=== PATIENT | female | born 1965 | race Asian ===

== ENCOUNTER → 2017-04-10 | Outpatient (CLI) | payer OTHER ==
[~2017-04-10] MED LIST: OMNIPAQUE 350 MG/ML, 100ML BOTTLE ONE
== END ==
LOC: CFH 11:01
PROVIDERS: ATTEND Obstetrics & Gynecology
DX: R10.32 Left lower quadrant pain (principal)
CPT/HCPCS: 74177; Q9967

== ENCOUNTER → 2017-04-19 | Outpatient (CLI) | payer OTHER ==
[~2017-04-19] MED LIST changes: +IRON PO; -OMNIPAQUE 350 MG/ML, 100ML BOTTLE ONE
[2017-04-19 08:53] LABS: BASOPHILS # (AUTO) 0.06 x10^3/uL (0-0.1); BASOPHILS % (AUTO) 2 % (0-1); EOSINOPHILS # (AUTO) 0.08 x10^3/uL (0-0.4); EOSINOPHILS % (AUTO) 2 % (1-7); LYMPHOCYTES # (AUTO) 1.28 x10^3/uL (1-3.4); LYMPHOCYTES % (AUTO) 34 % (22-44); MD NO; MEAN CORPUSCULAR HEMOGLOBIN 27.5 pg (27.0-34.8); MEAN CORPUSCULAR HGB CONC 33.2 g/dL (32.4-35.8); MEAN CORPUSCULAR VOLUME 82.7 fL (80-100); MEAN PLATELET VOLUME 7.9 fL (7.4-10.4); MONOCYTES # (AUTO) 0.26 x10^3/uL (0.2-0.8); MONOCYTES % (AUTO) 7 % (2-9); NEUTROPHILS # (AUTO) 2.08 x10^3/uL (1.8-6.8); NEUTROPHILS % (AUTO) 55 % (42-75); PLATELET COUNT 282 x10^3/uL (130-400); RED BLOOD COUNT 4.55 x10^6/uL (3.82-5.3); RED CELL DISTRIBUTION WIDTH 20.4 % (9.6-15.2)
[2017-04-19 08:57] LABS: MICROSCOPIC INDICATED
[2017-04-19 09:32] LABS: CULTURE INDICATED? YES
== END ==
LOC: STAR 07:43
PROVIDERS: ATTEND Obstetrics & Gynecology
DX: Z01.818 Encounter for other preprocedural examination (principal); N92.0 Excessive and frequent menstruation with regular cycle; D64.9 Anemia, unspecified
CPT/HCPCS: 36415; 81001; 84703; 85025; 87086; 93005

== ENCOUNTER 2017-04-26 07:00 | Day surgery (SDC) | payer OTHER ==
[~2017-04-26] VITALS: Ht 167.6 cm; Wt 64.0 kg
[2017-04-26] MEDS ORDERED: ACETAMINOPHEN 500 MG TABLET PO STA (07:18)
[2017-04-26] MEDS ORDERED: LACTATED RINGERS 1,000 ML IV SCH (07:18)
[2017-04-26] MEDS ORDERED: GABAPENTIN 300 MG CAPSULE PO STA (07:18)
[2017-04-26 07:34] VITALS: BP 96/64
[2017-04-26] MEDS ORDERED: MIDAZOLAM 1 MG/ML, 2ML ONE (08:24)
[2017-04-26] MEDS ORDERED: LIDOCAINE GEL 2%, 5ML ONE (08:24)
[2017-04-26] MEDS ORDERED: ROCURONIUM 10 MG/ML,10ML ONE (08:24)
[2017-04-26] MEDS ORDERED: SUCCINYLCHOLINE 20 MG/ML, 10ML ONE (08:24)
[2017-04-26] MEDS ORDERED: FENTANYL PF 250 MCG/5ML ONE (08:24)
[2017-04-26] MEDS ORDERED: PROPOFOL 10 MG/ML, 20ML ONE (08:24)
[2017-04-26 08:28] LABS: HCG UR SG 1.018 (1.003-1.030)
[2017-04-26] MEDS ORDERED: EPINEPHRINE 1 MG/ML, 1ML ONE (08:37)
[2017-04-26] MEDS ORDERED: BUPIVACAINE/PF 0.25% ONE (08:37)
[2017-04-26] MEDS ORDERED: FLUORESCEIN SODIUM 500 MG/5 ML ONE (08:37)
[2017-04-26] MEDS ORDERED: DEXAMETHASONE 4 MG/ML, 1ML ONE (08:59)
[2017-04-26] MEDS ORDERED: CEFAZOLIN 1,000 MG ONE (08:59)
[2017-04-26] MEDS ORDERED: KETOROLAC 30 MG/1 ML ONE (08:59)
[2017-04-26] MEDS ORDERED: ONDANSETRON 2MG/ML, 2ML ONE (08:59)
[2017-04-26] MEDS ORDERED: EPHEDRINE 50 MG/ML, 1ML ONE (09:22)
[2017-04-26] MEDS ORDERED: BUPIVACAINE/PF 0.25% INFIL ONE (09:28)
[2017-04-26] MEDS ORDERED: EPINEPHRINE 1 MG/ML, 1ML INFIL ONE (09:29)
[2017-04-26] MEDS ORDERED: hydrALAzine 20 MG/ML, 1ML IV PRN (09:30)
[2017-04-26] MEDS ORDERED: HYDROmorphone 1 MG/ML, 1ML IV PRN (09:30)
[2017-04-26] MEDS ORDERED: PROMETHAZINE 25 MG/ML, 1ML IV PRN (09:30)
[2017-04-26] MEDS ORDERED: OXYcodone 5 MG/5 ML ORAL.SOL UDC PO PRN (09:30)
[2017-04-26] MEDS ORDERED: MEPERIDINE/PF 25MG/0.5ML IVPush PRN (09:30)
[2017-04-26] MEDS ORDERED: ONDANSETRON 2MG/ML, 2ML IVPush PRN (09:30)
[2017-04-26] MEDS ORDERED: LABETALOL 5MG/ML, 20ML IV PRN (09:30)
[2017-04-26] MEDS ORDERED: ALBUTEROL SULFATE 2.5 MG/3 ML NPPB PRN (09:30)
[2017-04-26] MEDS ORDERED: FENTANYL PF 100 MCG/2ML IV PRN (09:30)
[2017-04-26] MEDS ORDERED: MIDAZOLAM 1 MG/ML, 2ML IV PRN (09:30)
[2017-04-26] MEDS ORDERED: FENTANYL PF 100 MCG/2ML ONE (10:12)
[2017-04-26] MEDS ORDERED: NEOSTIGMINE 1 MG/ML, 10ML ONE (11:46)
[2017-04-26] MEDS ORDERED: GLYCOPYRROLATE 0.4 MG/2 ML, 2ML ONE (11:46)
[2017-04-26] MEDS ORDERED: FLUORESCEIN SODIUM 500 MG/5 ML IVPB ONE (11:50)
[2017-04-26] MEDS ORDERED: OXYcodone 5 MG/5 ML ORAL.SOL UDC ONE (12:46)
[2017-04-26] MEDS ORDERED: PROMETHAZINE 25 MG SUPP PR ONE (17:26)
[2017-04-26] MEDS ORDERED: PROMETHAZINE 25 MG SUPP PR PRN (17:30)
== END 2017-04-26 17:50 | disposition home or self-care (01) ==
LOC: EDBD → OUT 07:00
PROVIDERS: ATTEND Obstetrics & Gynecology
DX: D25.9 Leiomyoma of uterus, unspecified (principal); N80.0 Endometriosis of uterus; N83.8 Other noninflammatory disorders of ovary, fallopian tube and broad ligament; Z98.1 Arthrodesis status; Z79.899 Other long term (current) drug therapy; D64.9 Anemia, unspecified
CPT/HCPCS: 36415; 58554; 81025; 85014; 85018; 86850; 86900; 88307; C1760; J0171; J0330; J0690; J1100; J1885; J2250; J2405; J2704; J2710; J3010; J3490; J7120

== ENCOUNTER 2017-04-26 19:31 | Emergency (ER) | payer OTHER ==
[~2017-04-26] VITALS: Ht 167.6 cm; Wt 67.0 kg
[2017-04-26 21:04] VITALS: BP 100/45
== END 2017-04-26 21:06 | disposition home or self-care (01) ==
LOC: ED 20:52
DX: Z98.890 Other specified postprocedural states (principal)
CPT/HCPCS: 99283